=== PATIENT | male | born 1970 | race Caucasian/White ===

== ENCOUNTER 2017-01-02 19:20 | Emergency (ER) | payer SELFPAY ==
[~2017-01-02] VITALS: Ht 190.5 cm; Wt 94.6 kg
[~2017-01-02 19:20] MED LIST: AMX500 PO; LRT5 PO
[2017-01-02 19:30] VITALS: TEMP 36.6; Ht 190.5 cm; Wt 94.6 kg
[2017-01-02] MEDS ORDERED: FLEXERIL HOME PACK 10 MG VIAL PO ONE (20:00)
[2017-01-02] MEDS ORDERED: GLC/500 PO (20:05)
--- NOTE | 2017-01-02 20:09 | EMERGENCY ROOM VISIT NOTE ---
ED Visit Note First contact with patient: 19:39 CHIEF COMPLAINT: Low back pain HISTORY OF PRESENT ILLNESS: This 46-year-old male patient presents to the emergency department ambulatory complaining of pain in the low back which began approximately one week ago. The patient states that he has had pain in his left lower back radiating down the back of the leg to the knee. It has been gradually increasing over the past 1 week, with significantly worsening pain over the past 2 days. He has been taking Alexsander back and body and naproxen for the pain without relief. He reports it is a burning pain and rates the discomfort a 9/10. He states that he has had mild back pain in the past, but no significant issues with the back. He denies any aggravating or alleviating factors. He denies numbness, weakness, incontinence, urinary retention or saddle anesthesias. He denies any radiation of the pain into his abdomen. He denies nausea or vomiting. The patient states he was recently diagnosed with diabetes but is otherwise healthy. REVIEW OF SYSTEMS: A review of systems was performed with positives and pertinent negatives listed in the history of present illness. All other systems were reviewed and are negative. ALLERGIES: No known drug allergies MEDICATIONS: Metformin PMH: Diabetes SOCIAL HISTORY: The patient lives locally with family. PHYSICAL EXAM: VITALS: Vitals are noted on the nurse's note and reviewed by myself. Vital signs stable. GENERAL: This is a 46-year-old male, in no acute distress, nondiaphoretic, well- developed well-nourished. SKIN: The skin was without rashes, erythema, edema, or bruising. Capillary refill less than 2 seconds. NECK: Supple without nuchal rigidity. No cervical spine tenderness. No paraspinous muscle tenderness. HEART: Regular rate and rhythm without murmurs gallops or rubs. LUNGS: Clear to auscultation bilaterally without wheezes, rales or rhonchi. ABDOMEN: Positive bowel sounds x 4. Normal tympanic percussion. Soft, nontender, without masses or organomegaly. Miller sign negative. MUSCULOSKELETAL: No muscle atrophy, erythema, or edema noted of the back. There is no tenderness over the lumbar spinous processes. There is no tenderness over the paraspinous muscles. There is no tenderness over the thoracic spine or paraspinous muscles. There are no muscle spasms present. The patient has full range of motion of the spine. Negative straight leg raise test. NEURO: Patient was alert and oriented to person place and time. Normal sensation to light and sharp touch. Deep tendon reflexes 2+ in the lower extremities. Dorsalis pedis pulse 2+ bilaterally. Strength 5/5 and equal in the bilateral lower extremities. EMERGENCY DEPARTMENT COURSE: The patient was evaluated as above. There is no evidence of cauda equina syndrome or cord compression. The patient has lumbar radiculopathy. I did feel that the patient would benefit from a course of steroids and had a lengthy discussion with him regarding this. I did warn the patient that steroids may increase his blood sugars, but he agreed that the benefits outweigh risk at this time and he would like to proceed with steroids. He was also given a prescription for Flexeril. He was instructed to follow- up with his primary care provider. Conservative measures were discussed. The patient verbalized understanding of my assessment and treatment plan and was discharged home in good condition. DIAGNOSIS: Lumbar radiculopathy Current/Historical Medications Scheduled Cyclobenzaprine Hcl (Flexeril), 10 MG PO TID Metformin Hcl (Glucophage), 500 MG PO BIDM Prednisone (Prednisone), 50 MG PO DAILY Allergies Coded Allergies: No Known Allergies (Unverified , 01/02/17) Vital Signs Date Time Temp Pulse Resp B/P (MAP) Pulse Ox O2 Delivery O2 Flow Rate FiO2 01/02/17 20:17 91 18 122/72 98 01/02/17 19:30 36.6 84 18 142/88 99 Room Air Medications Administered Medications (Trade) Dose Ordered Sig/Terrie Route Start Time Stop Time Status Last Admin Dose Admin Cyclobenzaprine HCl (FLEXERIL 10MG Home Pack) 1 homepack UD ONCE PO 01/02/17 20:00 01/02/17 20:01 DC 01/02/17 20:17 1 HOMEPACK Departure Information Impression Primary Impression: Lumbar radiculopathy Dispostion Home / Self-Care Condition GOOD Prescriptions Prednisone (Prednisone) 50 Mg Tab 50 MG PO DAILY for 4 Days, #4 TAB Prov: Subha Warner PA-C 01/02/17 Cyclobenzaprine Hcl (FLEXERIL) 10 Mg Tab 10 MG PO TID for 3 Days, #9 TAB Prov: Subha Warner PA-C 01/02/17 Referrals Pedro Andujar M.D. (PCP) Patient Instructions My [facility] Additional Instructions You have been treated in the Emergency Department for Back Pain. Prednisone as prescribed. Take this in the morning as it may affect your sleeping pattern. Check your blood sugars closely, as this may increase your blood sugars. You have been prescribed Flexeril (cyclobenzaprine) 1-2 tabs orally, three times per day. Do NOT exceed 30 mg (6 tabs) per day. Take your first dose at bedtime as it can make you drowsy. Always take all medications as prescribed. For pain control, you can use the following [id number] medicines (if >12 yo): - Regular strength (325mg/tab) Tylenol (acetaminophen) 2 tabs every 4-6 hours as needed. Do not exceed 12 tablets in a 24 hour period. Avoid taking more than 4 grams (4000 mg) of Tylenol per day. This includes any other sources of acetaminophen you may take on a regular basis. If this is an acute injury, ice can be applied to the area of pain for the first 3 days to help decrease pain and inflammation. After the first 3 days, a heating pad can be used over the area for continued soothing relief. You should schedule a follow-up appointment in 2-3 days with your Primary Care Provider for further evaluation and treatment of your back pain. Return to the Emergency Department if your current symptoms worsen despite treatment course outlined above, or if you develop any of the following symptoms : intractable pain despite aforementioned treatment course, loss of control of your bowel or bladder, numbness or tingling in your groin, or development of a fever.
[2017-01-02] MEDS ORDERED: CYCL10TA6 PO (20:10)
[2017-01-02] MEDS ORDERED: PRED50TA PO (20:10)
[2017-01-02 20:17] VITALS: BP 122/72; PULSE 91; O2SAT 98
== END 2017-01-02 20:18 | disposition home or self-care (01) ==
LOC: C.EDB 19:22 → C.EDD 20:18
DX: M54.16 Radiculopathy, lumbar region (principal); E11.9 Type 2 diabetes mellitus without complications; Z79.899 Other long term (current) drug therapy